=== PATIENT | female | born 1980 | race African-American/Black ===

== ENCOUNTER 2021-04-10 22:59 | Emergency (ER) | payer BC, OTHER ==
[2021-04-10 23:38] VITALS: BP 142/97; PULSE 93; TEMP 98; BMI 32.3
== END 2021-04-11 04:41 | disposition home or self-care (01) ==
LOC: JERFT 22:59 → JER 22:59
DX: L03.114 Cellulitis of left upper limb (principal)
CPT/HCPCS: 99283-25